=== PATIENT | male | born 1960 | race Caucasian/White ===

== ENCOUNTER 2017-03-14 20:40 | Emergency (ER) | END 2017-03-14 22:45 | disposition left against medical advice (07) | LOC: ER 20:40 | DX: Z53.21 Procedure and treatment not carried out due to patient leaving prior to being seen by health care provider (principal) ==

== ENCOUNTER 2017-03-15 00:41 | Emergency (ER) | payer OTHER ==
[2017-03-15] MEDS ORDERED: FENTANYL CITRATE INJ/PF 100 MCG/2 ML AMPUL ONE (00:55)
[2017-03-15] MEDS ORDERED: FENTANYL CITRATE INJ/PF 100 MCG/2 ML AMPUL IV ONE ×2 (00:55→01:34)
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
[2017-03-15 01:22] LABS: ABSOLUTE LYMPHOCYTES (AUTO) 1.3 10^3/uL (0.5-4.7); ABSOLUTE MONOCYTES (AUTO) 0.8 10^3/uL (0.1-1.4); ABSOLUTE NEUT (AUTO) 9.8 10^3/uL (1.7-8.2); BASOPHILS % (AUTO) 0.2 % (0-2); EOSINOPHILS % (AUTO) 0.1 % (0-6); HEMATOCRIT 43.2 % (37.9-51.0); HEMOGLOBIN 14.7 g/dL (13.5-17.0); LYMPHOCYTES % (AUTO) 10.7 % (13-45); MEAN CORPUSCULAR HEMOGLOBIN 33.4 pg (27.0-33.4); MEAN CORPUSCULAR HGB CONC 34.1 g/dL (32.0-36.0); MEAN CORPUSCULAR VOLUME 98 fl (80-97); MONOCYTES % (AUTO) 6.6 % (3-13); PLATELET COUNT 155 10^3/uL (150-450); SEGMENTED NEUTROPHILS % (AUTO) 82.4 % (42-78); TOTAL CELLS COUNTED % (AUTO) 100 %
[2017-03-15] MEDS ORDERED: NORMAL SALINE 1000 ML 1,000 ML IV ONE (01:22)
[2017-03-15 01:38] LABS: ANION GAP 15 (5-19); BLOOD UREA NITROGEN 6 mg/dL (7-20); CARBON DIOXIDE 23 mmol/L (22-30); CHLORIDE 100 mmol/L (98-107); GLUCOSE 90 mg/dL (75-110); POTASSIUM 4.3 mmol/L (3.6-5.0)
--- NOTE | 2017-03-15 01:59 | RADIOLOGY REPORT (SQ) ---
EXAM DESCRIPTION: CT HEAD WITHOUT CLINICAL HISTORY: trauma COMPARISON: None available TECHNIQUE: Axial CT of the head obtained from the skull apex to the skull base without contrast. FINDINGS: No acute intracranial hemorrhage identified. No mass, mass effect, shift of the midline, abnormal extra-axial fluid collection or CT evidence of acute ischemic change identified. The ventricular system is unremarkable. No acute abnormalities of the supratentorial white matter, basal ganglia, cerebellum, or brainstem. Mucosal thickening of the paranasal sinuses. Contusion in the left scalp subcutaneous soft tissues. No skull fracture identified. Visualized orbits and globes are unremarkable. DLP:1162.97 mGy-cm IMPRESSION: 1. No acute intracranial abnormality identified. This exam was performed according to our departmental dose-optimization program, which includes automated exposure control, adjustment of the mA and/or kV according to patient size and/or use of iterative reconstruction technique.
--- NOTE | 2017-03-15 02:24 | RADIOLOGY REPORT (SQ) ---
EXAM DESCRIPTION: CTA of the chest, abdomen, and pelvis obtained following the uncomplicated intravenous administration of iodinated contrast. Delayed images were obtained. Oral contrast was administered. CLINICAL HISTORY: trauma scan. one dose of oral than scan. COMPARISON: None Available. TECHNIQUE: Axial CT images of the chest, abdomen, and pelvis were obtained. 3-D/MIP reformatted images available. DLP: 4056.07 mGycm FINDINGS: CHEST: No evidence of aortic dissection, aneurysm, or traumatic aortic injury. No large pulmonary embolus identified. No mediastinal hematoma or pneumomediastinum identified. No abnormalities of visualized thyroid gland. Great vessels have normal anatomic configuration. No cardiomegaly or pericardial effusion. No abnormalities of the esophagus. No mediastinal lymphadenopathy. Lung windows demonstrate no definite pneumothorax. Mild centrilobular emphysematous changes. Small left pleural effusion. Abdomen: The liver has normal size and decreased density. No intrahepatic mass or biliary dilatation. No calcified gallstones. The spleen, pancreas, and adrenal glands are unremarkable. The kidneys have normal size and contour without evidence of solid mass or hydronephrosis. The aorta and IVC have normal caliber and position. The portal vein patent. The proximal visceral and renal arteries are patent. No free intraperitoneal air. The stomach and duodenum have normal course. Pelvis: Prostate is not enlarged. Urinary bladder is unremarkable. No free pelvic fluid or lymphadenopathy. No dilated loops of large or small bowel. Normal appendix. Nondisplaced fracture of the left T1 transverse process. Mildly displaced fracture of the posterior right first rib. Mildly displaced fracture of the posterior left second rib. There is a fracture of the distal left clavicle. Fracture of the anterior left third rib. Nondisplaced fracture of the anterior left fourth rib. Fracture of the lateral left fifth rib. Fracture of the lateral left seventh rib. Fracture of the lateral left eighth rib. IMPRESSION: 1. No evidence of traumatic aortic injury. 2. No evidence of traumatic abdominal solid organ injury. 3. Nondisplaced left T1 transverse process fracture. 4. Mildly displaced right T1 fracture. 5. Fractures involving the left second through eighth ribs. No definite pneumothorax identified. 6. Small left pleural fluid collection likely representing hemothorax. 7. Nondisplaced left distal clavicle fracture. 8. Hepatic steatosis. Report called to Dr. Hunt at 0120 hours on 03/15/2017 This exam was performed according to our departmental dose-optimization program, which includes automated exposure control, adjustment of the mA and/or kV according to patient size and/or use of iterative reconstruction technique. Electronically signed by: Vickey Reagan 03/15/2017 1:23 AM
--- NOTE | 2017-03-15 02:24 | RADIOLOGY REPORT (SQ) ---
EXAM DESCRIPTION: CT CERVICAL SPINE WITHOUT CLINICAL HISTORY: trauma COMPARISON: None available TECHNIQUE: Axial CT of the cervical spine obtained without contrast. FINDINGS: Alignment of the cervical spine is maintained without evidence of subluxation. The atlantoaxial, atlantodental, and occipitoatlantal intervals are preserved. Vertebral body height preserved. No vertebral body fracture identified. Nondisplaced fracture involving the left transverse process T1. Prevertebral soft tissues are unremarkable. There is a mildly displaced fracture of the right first rib as well as the left posterior second rib. Bridging anterior osteophytes of the fourth through C7 compatible with dish. Uncovertebral spurring. Mild loss of intervertebral disc height at C3/4 through C6/7. Mild facet arthropathy. Mild multilevel osseous neural foraminal narrowing. No central canal narrowing. Visualized skull base is intact. No fracture of the visualized facial bones. Visualized mastoid air cells and paranasal sinuses are well aerated. Visualized thyroid is unremarkable. No cervical lymphadenopathy. No pneumothorax in the visualized lung apices. DLP: 341.11 mGy-cm IMPRESSION: 1. Acute nondisplaced fracture of the left T1 transverse process. 2. Mildly displaced fractures involving the right first rib and left posterior second rib. 3. Report called to Dr. Hunt at 0120 hours on 03/15/2017 This exam was performed according to our departmental dose-optimization program, which includes automated exposure control, adjustment of the mA and/or kV according to patient size and/or use of iterative reconstruction technique.
[2017-03-15] MEDS ORDERED: MORPHINE SULFATE 10 MG/ML INJ IV ONE (05:23)
[2017-03-15] MEDS ORDERED: ONDANSETRON HCL INJ/PF 4 MG/2 ML SDV ONE (05:33)
[2017-03-15 06:55] VITALS: BP 115/72
== END 2017-03-15 07:33 | disposition short-term general hospital (02) ==
LOC: ER 00:41
DX: S22.43XA Multiple fractures of ribs, bilateral, initial encounter for closed fracture (principal); J94.2 Hemothorax; S42.002A Fracture of unspecified part of left clavicle, initial encounter for closed fracture; S22.019A Unspecified fracture of first thoracic vertebra, initial encounter for closed fracture; R10.9 Unspecified abdominal pain; M25.512 Pain in left shoulder; R00.0 Tachycardia, unspecified; B20 Human immunodeficiency virus [HIV] disease; Z79.899 Other long term (current) drug therapy; V03.99XA Pedestrian with other conveyance injured in collision with car, pick-up truck or van, unspecified whether traffic or nontraffic accident, initial encounter
CPT/HCPCS: 96376; 99285; 96361; 96374; 96375; 36415; 85025; 80048; 70450; 71275; 72125; 74177; J3010; J2270; J7030

== ENCOUNTER 2017-03-17 07:00 | Emergency (ER) | payer OTHER ==
[2017-03-17 07:21] VITALS: BP 118/73
[2017-03-17] MEDS ORDERED: HYDROMORPHONE HCL INJ/PF 2 MG/ML AMPULE IM ONE (07:57)
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
== END 2017-03-17 09:41 | disposition home or self-care (01) ==
LOC: ER 07:00
DX: S22.42XS Multiple fractures of ribs, left side, sequela (principal); S22.009S Unspecified fracture of unspecified thoracic vertebra, sequela; V09.9XXS Pedestrian injured in unspecified transport accident, sequela; M79.1 Myalgia; R05 Cough; F17.210 Nicotine dependence, cigarettes, uncomplicated; Z88.2 Allergy status to sulfonamides
CPT/HCPCS: 99284; 96372; 71046; J1170

== ENCOUNTER 2017-06-02 01:17 | Emergency (ER) | payer OTHER ==
[2017-06-02] MEDS ORDERED: LIDOCAINE 5% (700 MG) TRANSDERMAL ADH..PATCH TP ONE (03:46)
[2017-06-02] MEDS ORDERED: KETOROLAC TROMETHAMINE INJ/PF 30 MG/1 ML SDV IM ONE (03:46)
[2017-06-02] MEDS ORDERED: DEXAMETHASONE SOD PHOS INJ 10 MG/1 ML VIAL IM ONE (03:46)
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
--- NOTE | 2017-06-02 04:21 | RADIOLOGY REPORT (SQ) ---
EXAM DESCRIPTION: CERV SP 4 OR 5 VIEWS CLINICAL HISTORY: 56 years, Male, neck pain COMPARISON: None. NUMBER OF VIEWS: 6 LIMITATIONS: None. FINDINGS: Bridging osteophytes at the anterior, lower cervical spine mild spondylosis with mild bilateral C7 foraminal stenosis, and normal alignment-curvature. Normal vertebral heights. IMPRESSION: No acute findings.
[2017-06-02] MEDS ORDERED: LIDOCAINE 5% (700 MG) TRANSDERMAL ADH..PATCH ONE (05:25)
[2017-06-02 06:10] VITALS: BP 101/72
== END 2017-06-02 06:10 | disposition home or self-care (01) ==
LOC: ER 01:17
DX: M54.2 Cervicalgia (principal); G89.29 Other chronic pain; F17.200 Nicotine dependence, unspecified, uncomplicated
CPT/HCPCS: 99284; 96372; 72050; J1885; J1100